=== PATIENT | male | born 1990 | race Caucasian/White ===

== ENCOUNTER 2023-06-09 13:59 | Emergency (ER) | payer MEDICAID ==
[~2023-06-09] VITALS: Ht 177.8 cm; Wt 70.5 kg
[~2023-06-09 13:59] MED LIST: NOCURR
[2023-06-09 14:06] VITALS: TEMP 98
[2023-06-09] MEDS ORDERED: TETRACAINE HCL/PF 0.5% 4 ML OPHTHALMIC SOLUTION OU ONE (15:15)
[2023-06-09] MEDS ORDERED: FLUORESCEIN SODIUM 1 MG STRIP OD ONE (16:15)
[2023-06-09 16:30] VITALS: BP 115/75; PULSE 94; RESP 16
[2023-06-09] MEDS ORDERED: MOXI3DRO25 OD (16:59)
== END 2023-06-09 17:08 | disposition home or self-care (01) ==
LOC: EMS 14:03
DX: H10.9 Unspecified conjunctivitis (principal)
CPT/HCPCS: 99283

== ENCOUNTER 2024-03-25 18:28 | Emergency (ER) | payer MEDICAID ==
[~2024-03-25] VITALS: Ht 175.3 cm; Wt 72.7 kg
[~2024-03-25 18:28] MED LIST changes: +MOXI3DRO25 OD; -NOCURR
[2024-03-25 18:35] VITALS: BP 111/68; PULSE 73; RESP 16; TEMP 98.2
== END 2024-03-25 19:18 | disposition home or self-care (01) ==
LOC: EMS 18:28
DX: T14.8XXA Other injury of unspecified body region, initial encounter (principal); Z48.02 Encounter for removal of sutures; X58.XXXD Exposure to other specified factors, subsequent encounter
CPT/HCPCS: 99282; Z7502